=== PATIENT | male | born 1955 | race Caucasian/White ===

== ENCOUNTER 2018-05-14 18:48 | Inpatient (IN) | payer OTHER ==
[~2018-05-14] VITALS: Ht 180.3 cm; Wt 76.0 kg
[2018-05-14] MEDS ORDERED: HYDROmorphone 2 MG/ML, 1ML ONE (19:40)
[2018-05-14 19:43] LABS: BASOPHILS # (AUTO) 0.02 x10^3/uL (0-0.1); BASOPHILS % (AUTO) 0 % (0-1); EOSINOPHILS # (AUTO) 0.04 x10^3/uL (0-0.4); EOSINOPHILS % (AUTO) 1 % (1-7); HCT (SEDRATE) 44.2 % (39.2-51.8); LYMPHOCYTES % (AUTO) 16 % (22-44); MD NO; MEAN CORPUSCULAR HGB CONC 33.8 g/dL (33.2-36.2); MEAN CORPUSCULAR VOLUME 85.9 fL (81-97); MONOCYTES % (AUTO) 10 % (2-9); NEUTROPHILS # (AUTO) 6.31 x10^3/uL (1.8-6.8); NEUTROPHILS % (AUTO) 73 % (42-75); PLATELET COUNT 490 x10^3/uL (130-400); RED BLOOD COUNT 4.92 x10^6/uL (4.38-5.82); RED CELL DISTRIBUTION WIDTH 12.9 % (9.4-14.8)
[2018-05-14 19:51] LABS: ANION GAP 11 mmol/L (5-15); CALCIUM 9.2 mg/dL (8.5-10.1); CHLORIDE 97 mmol/L (98-107)
[2018-05-14 19:59] LABS: CREATININE 1.43 mg/dL (0.7-1.3)
[2018-05-14] MEDS ORDERED: HYDROmorphone 1 MG/ML, 1ML IVPush PRN (20:00)
[2018-05-14] MEDS ORDERED: SODIUM CHLORIDE FLUSH 10ML SYR IVF ONE (20:00)
[2018-05-14 20:01] LABS: HIGH-SENSITIVITY CRP > 19.00 mg/dL (0.02-0.30)
[2018-05-14] MEDS ORDERED: LIDOCAINE-MPF 2% ,5ML ONE ×2 (20:05→20:23)
[2018-05-14] MEDS ORDERED: GLIP10TA13 PO (20:57)
[2018-05-14] MEDS ORDERED: INSU100V8 SQ (20:57)
[2018-05-14] MEDS ORDERED: LIDOCAINE 2%, 20ML SQ ONE (21:00)
[2018-05-14] MEDS ORDERED: GLUCAGON 1 MG IM PRN (22:00)
[2018-05-14] MEDS ORDERED: POLYETHYLENE GLYCOL 17 GM PACKET PO PRN (22:00)
[2018-05-14] MEDS ORDERED: hydrALAzine 20 MG/ML, 1ML IVPush PRN (22:00)
[2018-05-14] MEDS ORDERED: DEXTROSE 4 GM TAB.CHEW PO PRN (22:00)
[2018-05-14] MEDS ORDERED: DEXTROSE 50%, 50ML SYRINGE IVPush PRN (22:00)
[2018-05-14] MEDS ORDERED: BISACODYL 10 MG SUPP PR PRN (22:00)
[2018-05-14] MEDS ORDERED: ONDANSETRON 2MG/ML, 2ML IVPush PRN (22:00)
[2018-05-14] MEDS ORDERED: ACETAMINOPHEN 325 MG TABLET PO PRN (22:00)
[2018-05-14] MEDS: HYDROcodone/APAP 5/325 TABLET PO PRN (22:31)
[2018-05-14] MEDS: SODIUM CHLORIDE 0.9% 1,000 ML IV SCH (22:32)
[2018-05-14] MEDS: morphine SULFATE 10 MG/ML, 1ML IVPush PRN (23:10)
[2018-05-15 02:45] VITALS: BP 146/80
[2018-05-15 05:42] LABS: BASOPHILS # (AUTO) 0.03 x10^3/uL (0-0.1); BASOPHILS % (AUTO) 0 % (0-1); EOSINOPHILS # (AUTO) 0.08 x10^3/uL (0-0.4); EOSINOPHILS % (AUTO) 1 % (1-7); LYMPHOCYTES # (AUTO) 1.21 x10^3/uL (1-3.4); LYMPHOCYTES % (AUTO) 13 % (22-44); MD NO; MEAN CORPUSCULAR HEMOGLOBIN 28.8 pg (27.5-34.5); MEAN CORPUSCULAR HGB CONC 33.6 g/dL (33.2-36.2); MEAN CORPUSCULAR VOLUME 85.7 fL (81-97); MONOCYTES # (AUTO) 1.13 x10^3/uL (0.2-0.8); MONOCYTES % (AUTO) 12 % (2-9); NEUTROPHILS # (AUTO) 6.88 x10^3/uL (1.8-6.8); NEUTROPHILS % (AUTO) 74 % (42-75); PLATELET COUNT 455 x10^3/uL (130-400); RED BLOOD COUNT 4.39 x10^6/uL (4.38-5.82); RED CELL DISTRIBUTION WIDTH 12.7 % (9.4-14.8)
[2018-05-15] MEDS: morphine SULFATE 10 MG/ML, 1ML IVPush PRN ×3 (05:50→16:49)
[2018-05-15 05:59] LABS: CHLORIDE 102 mmol/L (98-107)
[2018-05-15 06:05] LABS: ALANINE AMINOTRANSFERASE 13 U/L (12-78); ALBUMIN 2.5 g/dL (3.4-5.0); ALKALINE PHOSPHATASE 107 U/L (45-117); ANION GAP 7 mmol/L (5-15); BILIRUBIN,TOTAL 0.7 mg/dL (0.2-1.0); CREATININE 1.16 mg/dL (0.7-1.3)
[2018-05-15 07:19] VITALS: BP 137/76
[2018-05-15] MEDS: SODIUM CHLORIDE FLUSH 10ML SYR IVF SCH ×2 (08:09→20:58)
[2018-05-15] MEDS: INSULIN LISPRO 100 UNITS/ML, PEN SQ-INSULIN SCH ×4 (08:43→21:48)
[2018-05-15] MEDS: SODIUM CHLORIDE 0.9% 1,000 ML IV SCH (11:15)
[2018-05-15 14:00] VITALS: BP 160/76
[2018-05-15] MEDS ORDERED: MIDAZOLAM 1 MG/ML, 2ML ONE (15:03)
[2018-05-15] MEDS ORDERED: FENTANYL PF 250 MCG/5ML ONE (15:03)
[2018-05-15] MEDS ORDERED: PROPOFOL 10 MG/ML, 20ML ONE (15:05)
[2018-05-15] MEDS ORDERED: WATER-INJECTION,STERILE 10 ML IV ONE (15:05)
[2018-05-15] MEDS ORDERED: PHENYLEPHRINE 10 MG/ML ONE (15:05)
[2018-05-15] MEDS ORDERED: CEFAZOLIN 1,000 MG ONE ×2 (15:05)
[2018-05-15] MEDS ORDERED: DEXAMETHASONE 4 MG/ML, 1ML ONE (15:21)
[2018-05-15] MEDS ORDERED: ONDANSETRON 2MG/ML, 2ML ONE (15:21)
[2018-05-15] MEDS ORDERED: EPINEPHRINE 1 MG/ML, 1ML ONE (15:52)
[2018-05-15] MEDS ORDERED: BUPIVACAINE 0.25% ONE (15:52)
[2018-05-15] MEDS ORDERED: LABETALOL 5MG/ML, 20ML IV PRN (16:00)
[2018-05-15] MEDS ORDERED: HYDROmorphone 1 MG/ML, 1ML IV PRN (16:00)
[2018-05-15] MEDS ORDERED: HALOPERIDOL 5 MG/ML IV PRN (16:00)
[2018-05-15] MEDS ORDERED: PROMETHAZINE 25 MG/ML, 1ML IV PRN (16:00)
[2018-05-15] MEDS ORDERED: FENTANYL PF 100 MCG/2ML IV PRN (16:00)
[2018-05-15] MEDS ORDERED: MEPERIDINE/PF 25MG/0.5ML IVPush PRN (16:00)
[2018-05-15] MEDS ORDERED: ACETAMINOPHEN 325 MG TABLET PO PRN (16:00)
[2018-05-15] MEDS ORDERED: OXYcodone 5 MG/5 ML ORAL.SOL UDC PO PRN (16:00)
[2018-05-15] MEDS ORDERED: hydrALAzine 20 MG/ML, 1ML IV PRN (16:00)
[2018-05-15] MEDS ORDERED: HYDROmorphone 2 MG/ML, 1ML ONE (16:37)
[2018-05-15] MEDS ORDERED: ACETAMINOPHEN 650 MG/20.3 ML UDC ONE (16:37)
[2018-05-15] MEDS ORDERED: OXYcodone 5 MG/5 ML ORAL.SOL UDC ONE (16:38)
[2018-05-15] MEDS ORDERED: MORPHINE SULFATE 4 MG/ML, 1ML ONE (16:46)
[2018-05-15] MEDS ORDERED: PHARMACOKINETIC MONITORING MC PRN (17:30)
[2018-05-15] MEDS ORDERED: PHARMACOKINETIC CONSULTATION MC ONE (17:30)
[2018-05-15] MEDS ORDERED: VANCOMYCIN PER PHARMACY MC PRN (17:30)
[2018-05-15] MEDS: PIPERACILLIN/TAZO/PMX 3.375GM 50 ML IV SCH ×2 (17:58→23:25)
[2018-05-15] MEDS ORDERED: VANCOMYCIN 1,500 MG in SODIUM CHLORIDE 0.9% 250 ML IV SCH (18:00)
[2018-05-15 19:30] VITALS: BP 136/65
[2018-05-15] MEDS: HYDROcodone/APAP 5/325 TABLET PO PRN (20:36)
[2018-05-15] MEDS ORDERED: INSULIN LISPRO 100 UNITS/ML, PEN SQ-INSULIN SCH (21:45)
[2018-05-15] MEDS: INSULIN GLARGINE 100 UNITS/ML, PEN SQ-INSULIN SCH (23:25)
[2018-05-15] MEDS: CEFAZOLIN PMX 1GM/50ML 50 ML IVPB SCH (23:38)
[2018-05-16 00:01] VITALS: BP 109/66
[2018-05-16] MEDS: PIPERACILLIN/TAZO/PMX 3.375GM 50 ML IV SCH ×2 (00:19→06:19)
[2018-05-16] MEDS ORDERED: INSULIN LISPRO 100 UNITS/ML, PEN SQ-INSULIN ONE (03:30)
[2018-05-16] MEDS: HYDROcodone/APAP 5/325 TABLET PO PRN ×3 (04:01→14:15)
[2018-05-16 04:03] VITALS: BP 133/72
[2018-05-16 07:03] VITALS: BP 122/73
[2018-05-16] MEDS ORDERED: CEFAZOLIN PMX 1GM/50ML 50 ML ONE (08:17)
[2018-05-16] MEDS: INSULIN LISPRO 100 UNITS/ML, PEN SQ-INSULIN SCH ×4 (08:22→21:21)
[2018-05-16] MEDS: SODIUM CHLORIDE FLUSH 10ML SYR IVF SCH ×2 (08:23→21:00)
[2018-05-16] MEDS: CEFAZOLIN PMX 1GM/50ML 50 ML IVPB SCH (08:23)
[2018-05-16 13:57] VITALS: BP 150/70
[2018-05-16] MEDS: DAPTOMYCIN 500 MG in SODIUM CHLORIDE 0.9% 100 ML IVPB SCH (14:15)
[2018-05-16] MEDS: morphine SULFATE 10 MG/ML, 1ML IVPush PRN ×2 (16:27→21:29)
[2018-05-16 19:49] VITALS: BP 122/71
[2018-05-16] MEDS: INSULIN GLARGINE 100 UNITS/ML, PEN SQ-INSULIN SCH (21:21)
[2018-05-17] VITALS: BP 129/77
[2018-05-17] MEDS: morphine SULFATE 10 MG/ML, 1ML IVPush PRN ×2 (00:51→06:52)
[2018-05-17 05:23] LABS: ALBUMIN 1.9 g/dL (3.4-5.0); ANION GAP 7 mmol/L (5-15); CALCIUM 8.2 mg/dL (8.5-10.1); CHLORIDE 99 mmol/L (98-107)
[2018-05-17 05:34] LABS: ALANINE AMINOTRANSFERASE 10 U/L (12-78); ALKALINE PHOSPHATASE 78 U/L (45-117); BILIRUBIN,TOTAL 0.6 mg/dL (0.2-1.0); CREATINE KINASE, TOTAL 50 U/L (39-308); CREATININE 1.11 mg/dL (0.7-1.3); TOTAL PROTEIN 6.2 g/dL (6.4-8.2)
[2018-05-17 06:11] LABS: HEMOGLOBIN A1C 11.8 % (4.2-6.3)
[2018-05-17] MEDS: INSULIN LISPRO 100 UNITS/ML, PEN SQ-INSULIN SCH ×4 (07:00→22:14)
[2018-05-17 07:11] VITALS: BP 144/79
[2018-05-17] MEDS ORDERED: FENTANYL PF 250 MCG/5ML ONE (07:54)
[2018-05-17] MEDS ORDERED: PROPOFOL 10 MG/ML, 20ML ONE (07:59)
[2018-05-17] MEDS ORDERED: MIDAZOLAM 1 MG/ML, 2ML ONE (08:10)
[2018-05-17] MEDS ORDERED: VANCOMYCIN 1,000 MG ONE (08:56)
[2018-05-17] MEDS ORDERED: PROMETHAZINE 25 MG/ML, 1ML IV PRN (09:00)
[2018-05-17] MEDS ORDERED: LABETALOL 5MG/ML, 20ML IV PRN (09:00)
[2018-05-17] MEDS ORDERED: PROMETHAZINE 12.5 MG SUPP PR PRN (09:00)
[2018-05-17] MEDS ORDERED: DIPHENHYDRAMINE 25 MG CAPSULE PO PRN (09:00)
[2018-05-17] MEDS ORDERED: ACETAMINOPHEN 325 MG TABLET PO PRN (09:00)
[2018-05-17] MEDS ORDERED: EPHEDRINE 50 MG/ML, 1ML IM PRN (09:00)
[2018-05-17] MEDS ORDERED: EPHEDRINE 50 MG/ML, 1ML IVPush PRN (09:00)
[2018-05-17] MEDS ORDERED: OXYcodone 5 MG/5 ML ORAL.SOL UDC PO PRN (09:00)
[2018-05-17] MEDS ORDERED: MIDAZOLAM 1 MG/ML, 2ML IV PRN (09:00)
[2018-05-17] MEDS ORDERED: MORPHINE SULFATE 4 MG/ML, 1ML IVPush PRN (09:00)
[2018-05-17] MEDS ORDERED: ONDANSETRON ODT 8 MG PO PRN (09:00)
[2018-05-17] MEDS ORDERED: OXYcodone 5 MG/5 ML ORAL.SOL UDC ONE (09:48)
[2018-05-17] MEDS ORDERED: FENTANYL PF 100 MCG/2ML ONE ×2 (09:48→10:09)
[2018-05-17] MEDS: FENTANYL PF 100 MCG/2ML IV PRN ×5 (09:50→10:30)
[2018-05-17] MEDS: SODIUM CHLORIDE FLUSH 10ML SYR IVF SCH ×2 (11:42→22:14)
[2018-05-17 11:45] VITALS: BP 128/70
[2018-05-17] MEDS: DAPTOMYCIN 500 MG in SODIUM CHLORIDE 0.9% 100 ML IVPB SCH (13:48)
[2018-05-17] MEDS: HYDROcodone/APAP 5/325 TABLET PO PRN (14:44)
[2018-05-17 14:47] VITALS: BP 154/85
[2018-05-17] MEDS: DOCUSATE 100 MG CAPSULE PO PRN (17:34)
[2018-05-17 20:18] VITALS: BP 130/75
[2018-05-17] MEDS: INSULIN GLARGINE 100 UNITS/ML, PEN SQ-INSULIN SCH (22:13)
[2018-05-17 23:46] VITALS: BP 128/71
[2018-05-18] MEDS: HYDROcodone/APAP 5/325 TABLET PO PRN ×4 (02:32→19:29)
[2018-05-18 03:36] VITALS: BP 126/76
[2018-05-18 07:37] VITALS: BP_SYST 153; BP_SYST 160; BP_DIAS 89
[2018-05-18] MEDS: SODIUM CHLORIDE FLUSH 10ML SYR IVF SCH ×2 (07:55→20:55)
[2018-05-18] MEDS: INSULIN LISPRO 100 UNITS/ML, PEN SQ-INSULIN SCH ×4 (07:55→20:55)
[2018-05-18] MEDS: DAPTOMYCIN 500 MG in SODIUM CHLORIDE 0.9% 100 ML IVPB SCH (12:08)
[2018-05-18 13:16] VITALS: BP 127/73
[2018-05-18] MEDS: DOCUSATE 100 MG CAPSULE PO PRN (16:46)
[2018-05-18 18:49] VITALS: BP 156/93
[2018-05-18] MEDS: INSULIN GLARGINE 100 UNITS/ML, PEN SQ-INSULIN SCH (20:55)
[2018-05-19] MEDS: HYDROcodone/APAP 5/325 TABLET PO PRN ×6 (00:13→23:45)
[2018-05-19 00:38] VITALS: BP 127/75
[2018-05-19] MEDS: INSULIN LISPRO 100 UNITS/ML, PEN SQ-INSULIN SCH ×4 (07:44→20:58)
[2018-05-19 08:00] VITALS: BP 99/60
[2018-05-19] MEDS: SODIUM CHLORIDE FLUSH 10ML SYR IVF SCH ×2 (08:24→20:50)
[2018-05-19 08:30] VITALS: BP 125/74
[2018-05-19] MEDS: DOCUSATE 50 MG/5 ML, 10ML UDC PO SCH ×2 (11:10→20:50)
[2018-05-19] MEDS: MAGNESIUM HYDROXIDE 8%, 30ML UDC PO SCH (11:10)
[2018-05-19] MEDS: DAPTOMYCIN 500 MG in SODIUM CHLORIDE 0.9% 100 ML IVPB SCH (12:43)
[2018-05-19 14:36] VITALS: BP 144/84
[2018-05-19] MEDS ORDERED: INSULIN GLARGINE 100 UNITS/ML, PEN SQ-INSULIN SCH (21:00)
[2018-05-19 21:24] VITALS: BP 131/78
[2018-05-20 00:29] VITALS: BP 113/68
[2018-05-20] MEDS: HYDROcodone/APAP 5/325 TABLET PO PRN ×5 (03:47→21:38)
[2018-05-20 07:50] LABS: ALANINE AMINOTRANSFERASE 11 U/L (12-78); ALBUMIN 2.2 g/dL (3.4-5.0); ANION GAP 6 mmol/L (5-15); CALCIUM 8.7 mg/dL (8.5-10.1); CHLORIDE 96 mmol/L (98-107); CREATININE 1.16 mg/dL (0.7-1.3)
[2018-05-20 07:52] LABS: ALKALINE PHOSPHATASE 89 U/L (45-117); BILIRUBIN,TOTAL 0.6 mg/dL (0.2-1.0); TOTAL PROTEIN 7.2 g/dL (6.4-8.2)
[2018-05-20 07:55] LABS: BASOPHILS # (AUTO) 0.03 x10^3/uL (0-0.1); BASOPHILS % (AUTO) 0 % (0-1); EOSINOPHILS # (AUTO) 0.16 x10^3/uL (0-0.4); EOSINOPHILS % (AUTO) 2 % (1-7); LYMPHOCYTES # (AUTO) 1.15 x10^3/uL (1-3.4); LYMPHOCYTES % (AUTO) 12 % (22-44); MD NO; MEAN CORPUSCULAR HGB CONC 33.3 g/dL (33.2-36.2); MEAN CORPUSCULAR VOLUME 84.1 fL (81-97); MEAN PLATELET VOLUME 6.4 fL (7.4-10.4); MONOCYTES # (AUTO) 1.02 x10^3/uL (0.2-0.8); MONOCYTES % (AUTO) 11 % (2-9); NEUTROPHILS # (AUTO) 7.23 x10^3/uL (1.8-6.8); NEUTROPHILS % (AUTO) 75 % (42-75); PLATELET COUNT 630 x10^3/uL (130-400); RED BLOOD COUNT 4.22 x10^6/uL (4.38-5.82); RED CELL DISTRIBUTION WIDTH 12.7 % (9.4-14.8)
[2018-05-20] MEDS: MAGNESIUM HYDROXIDE 8%, 30ML UDC PO SCH (08:58)
[2018-05-20] MEDS: INSULIN LISPRO 100 UNITS/ML, PEN SQ-INSULIN SCH ×4 (08:58→21:54)
[2018-05-20] MEDS: DOCUSATE 50 MG/5 ML, 10ML UDC PO SCH ×2 (08:58→21:38)
[2018-05-20] MEDS: SODIUM CHLORIDE FLUSH 10ML SYR IVF SCH ×2 (08:59→21:00)
[2018-05-20] MEDS ORDERED: INSULIN GLARGINE 100 UNITS/ML, PEN SQ-INSULIN SCH ×2 (09:00→21:00)
[2018-05-20] MEDS ORDERED: MAGNESIUM CITRATE 300ML ORAL SOL PO ONE (13:00)
[2018-05-20] MEDS: DAPTOMYCIN 500 MG in SODIUM CHLORIDE 0.9% 100 ML IVPB SCH (15:10)
[2018-05-20 15:23] VITALS: BP 138/87
[2018-05-20 16:06] LABS: OSMOLALITY,URINE 493 mOsm/kg (500-850)
[2018-05-20] MEDS ORDERED: INSULIN LISPRO 100 UNITS/ML, PEN SQ-INSULIN SCH (17:00)
[2018-05-20] MEDS: FLORASTOR 250 MG CAPSULE PO SCH (17:34)
[2018-05-20 20:16] VITALS: BP 142/89
[2018-05-21 01:53] VITALS: BP 131/82
[2018-05-21] MEDS: HYDROcodone/APAP 5/325 TABLET PO PRN ×3 (02:06→11:15)
[2018-05-21 04:41] LABS: HCT (SEDRATE) 34.7 % (39.2-51.8)
[2018-05-21 04:44] LABS: BASOPHILS # (AUTO) 0.03 x10^3/uL (0-0.1); BASOPHILS % (AUTO) 0 % (0-1); EOSINOPHILS # (AUTO) 0.14 x10^3/uL (0-0.4); EOSINOPHILS % (AUTO) 2 % (1-7); LYMPHOCYTES # (AUTO) 1.16 x10^3/uL (1-3.4); LYMPHOCYTES % (AUTO) 13 % (22-44); MD NO; MEAN CORPUSCULAR HEMOGLOBIN 28.4 pg (27.5-34.5); MEAN CORPUSCULAR HGB CONC 33.8 g/dL (33.2-36.2); MEAN CORPUSCULAR VOLUME 84.1 fL (81-97); MEAN PLATELET VOLUME 6.5 fL (7.4-10.4); MONOCYTES % (AUTO) 12 % (2-9); NEUTROPHILS % (AUTO) 73 % (42-75); PLATELET COUNT 644 x10^3/uL (130-400); RED BLOOD COUNT 4.05 x10^6/uL (4.38-5.82); RED CELL DISTRIBUTION WIDTH 12.7 % (9.4-14.8)
[2018-05-21 04:53] LABS: ALBUMIN 2.1 g/dL (3.4-5.0); ANION GAP 6 mmol/L (5-15); CALCIUM 8.9 mg/dL (8.5-10.1); CHLORIDE 96 mmol/L (98-107)
[2018-05-21 05:03] LABS: ALANINE AMINOTRANSFERASE 11 U/L (12-78); ALKALINE PHOSPHATASE 88 U/L (45-117); BILIRUBIN,TOTAL 0.5 mg/dL (0.2-1.0); CREATINE KINASE, TOTAL 36 U/L (39-308); TOTAL PROTEIN 6.9 g/dL (6.4-8.2)
[2018-05-21 07:07] VITALS: BP 113/75
[2018-05-21] MEDS: FLORASTOR 250 MG CAPSULE PO SCH (08:21)
[2018-05-21] MEDS: DOCUSATE 50 MG/5 ML, 10ML UDC PO SCH ×2 (08:21→21:21)
[2018-05-21] MEDS: INSULIN LISPRO 100 UNITS/ML, PEN SQ-INSULIN SCH ×4 (08:22→21:18)
[2018-05-21] MEDS: SODIUM CHLORIDE FLUSH 10ML SYR IVF SCH ×2 (08:24→20:55)
[2018-05-21] MEDS: MAGNESIUM HYDROXIDE 8%, 30ML UDC PO SCH (09:00)
[2018-05-21] MEDS ORDERED: INSULIN GLARGINE 100 UNITS/ML, PEN SQ-INSULIN SCH ×2 (09:00→21:00)
[2018-05-21] MEDS: MESALAMINE ENEMA 4 GM/60 ML ENEMA PR SCH (11:35)
[2018-05-21 13:10] VITALS: BP 137/85
[2018-05-21] MEDS: DAPTOMYCIN 500 MG in SODIUM CHLORIDE 0.9% 100 ML IVPB SCH (14:48)
[2018-05-21] MEDS ORDERED: LIDOCAINE-MPF 1%, 2ML ONE (15:56)
[2018-05-21 19:29] VITALS: BP 133/78
[2018-05-22 02:07] VITALS: BP 133/80
[2018-05-22] MEDS: HYDROcodone/APAP 5/325 TABLET PO PRN ×5 (02:26→19:50)
[2018-05-22 05:37] LABS: ANION GAP 9 mmol/L (5-15); CALCIUM 9.5 mg/dL (8.5-10.1); CHLORIDE 101 mmol/L (98-107); CREATININE 1.08 mg/dL (0.7-1.3)
[2018-05-22] MEDS: INSULIN LISPRO 100 UNITS/ML, PEN SQ-INSULIN SCH ×4 (06:26→21:40)
[2018-05-22 07:10] VITALS: BP 119/77
[2018-05-22] MEDS: INSULIN GLARGINE 100 UNITS/ML, PEN SQ-INSULIN SCH ×3 (07:21→23:08)
[2018-05-22] MEDS: MAGNESIUM HYDROXIDE 8%, 30ML UDC PO SCH (08:44)
[2018-05-22] MEDS: FLORASTOR 250 MG CAPSULE PO SCH (08:52)
[2018-05-22] MEDS: SODIUM CHLORIDE FLUSH 10ML SYR IVF SCH ×2 (08:52→23:05)
[2018-05-22] MEDS: DOCUSATE 100 MG CAPSULE PO SCH ×2 (08:52→19:50)
[2018-05-22] MEDS: ENOXAPARIN 40 MG/0.4 ML SQ SCH (08:53)
[2018-05-22 13:36] VITALS: BP 133/80
[2018-05-22] MEDS: DAPTOMYCIN 500 MG in SODIUM CHLORIDE 0.9% 100 ML IVPB SCH (14:44)
[2018-05-22 19:00] VITALS: BP 128/80
[2018-05-22] MEDS: MESALAMINE ENEMA 4 GM/60 ML ENEMA PR SCH (21:42)
[2018-05-23] MEDS: HYDROcodone/APAP 5/325 TABLET PO PRN ×6 (00:18→22:24)
[2018-05-23 02:46] VITALS: BP 107/63
[2018-05-23 07:07] VITALS: BP 158/95
[2018-05-23] MEDS: SODIUM CHLORIDE FLUSH 10ML SYR IVF SCH ×2 (08:15→21:08)
[2018-05-23] MEDS: DOCUSATE 100 MG CAPSULE PO SCH ×2 (08:15→21:09)
[2018-05-23] MEDS: FLORASTOR 250 MG CAPSULE PO SCH (08:15)
[2018-05-23] MEDS: INSULIN LISPRO 100 UNITS/ML, PEN SQ-INSULIN SCH ×4 (08:16→21:08)
[2018-05-23] MEDS: MAGNESIUM HYDROXIDE 8%, 30ML UDC PO SCH (08:16)
[2018-05-23] MEDS: ENOXAPARIN 40 MG/0.4 ML SQ SCH (08:16)
[2018-05-23] MEDS: INSULIN GLARGINE 100 UNITS/ML, PEN SQ-INSULIN SCH ×2 (08:17→21:08)
[2018-05-23 13:53] VITALS: BP 114/72
[2018-05-23] MEDS: DAPTOMYCIN 500 MG in SODIUM CHLORIDE 0.9% 100 ML IVPB SCH (14:53)
[2018-05-23 19:41] VITALS: BP 126/72
[2018-05-23] MEDS: MESALAMINE ENEMA 4 GM/60 ML ENEMA PR SCH (21:08)
[2018-05-24] MEDS: HYDROcodone/APAP 5/325 TABLET PO PRN ×5 (03:30→20:15)
[2018-05-24 04:26] VITALS: BP 125/76
[2018-05-24 07:20] VITALS: BP 127/75
[2018-05-24] MEDS: INSULIN LISPRO 100 UNITS/ML, PEN SQ-INSULIN SCH ×4 (07:32→20:25)
[2018-05-24] MEDS: MAGNESIUM HYDROXIDE 8%, 30ML UDC PO SCH (08:02)
[2018-05-24] MEDS: FLORASTOR 250 MG CAPSULE PO SCH (08:02)
[2018-05-24] MEDS: DOCUSATE 100 MG CAPSULE PO SCH ×2 (08:02→20:15)
[2018-05-24] MEDS: ENOXAPARIN 40 MG/0.4 ML SQ SCH (08:03)
[2018-05-24] MEDS: SODIUM CHLORIDE FLUSH 10ML SYR IVF SCH ×2 (08:03→20:15)
[2018-05-24] MEDS: INSULIN GLARGINE 100 UNITS/ML, PEN SQ-INSULIN SCH (08:03)
[2018-05-24 12:55] VITALS: BP 133/80
[2018-05-24] MEDS: DAPTOMYCIN 500 MG in SODIUM CHLORIDE 0.9% 100 ML IVPB SCH (14:46)
[2018-05-24 19:32] VITALS: BP 120/73
[2018-05-24] MEDS: MESALAMINE ENEMA 4 GM/60 ML ENEMA PR SCH (20:15)
[2018-05-24] MEDS ORDERED: INSULIN GLARGINE 100 UNITS/ML, PEN SQ-INSULIN SCH (21:00)
[2018-05-25] MEDS: HYDROcodone/APAP 5/325 TABLET PO PRN ×3 (00:20→09:15)
[2018-05-25 00:24] VITALS: BP 100/61
[2018-05-25] MEDS: INSULIN LISPRO 100 UNITS/ML, PEN SQ-INSULIN SCH ×2 (06:25→11:51)
[2018-05-25 07:00] VITALS: BP 119/61
[2018-05-25 07:05] VITALS: BP 119/61
[2018-05-25] MEDS: ENOXAPARIN 40 MG/0.4 ML SQ SCH (09:00)
[2018-05-25] MEDS: SODIUM CHLORIDE FLUSH 10ML SYR IVF SCH (09:00)
[2018-05-25] MEDS ORDERED: INSULIN GLARGINE 100 UNITS/ML, PEN SQ-INSULIN SCH (09:00)
[2018-05-25] MEDS: DOCUSATE 100 MG CAPSULE PO SCH (09:15)
[2018-05-25] MEDS: FLORASTOR 250 MG CAPSULE PO SCH (09:15)
[2018-05-25] MEDS: MAGNESIUM HYDROXIDE 8%, 30ML UDC PO SCH (09:15)
[2018-05-25] MEDS ORDERED: INSU100I11 SQ-INSULIN (12:28)
[2018-05-25] MEDS ORDERED: INSU100I13 SQ-INSULIN ×2 (12:28)
[2018-05-25] MEDS ORDERED: DOCU240C15 PO (12:28)
[2018-05-25] MEDS ORDERED: DAPT500V6 IV (12:28)
[2018-05-25 14:21] VITALS: BP 127/76
[2018-05-25] MEDS: DAPTOMYCIN 500 MG in SODIUM CHLORIDE 0.9% 100 ML IVPB SCH (14:35)
[2018-05-26] MEDS ORDERED: INSULIN GLARGINE 100 UNITS/ML, PEN SQ-INSULIN SCH (09:00)
== END 2018-05-25 16:03 | disposition home or self-care (01) | DRG 853 ==
LOC: ED 20:52 → 4NOR 20:53 → ED 21:00 → 4NOR 21:45 → ED 21:45 → 4NOR 21:48
PROVIDERS: ADMIT Hospitalist; ATTEND Hospitalist
PROC: 0S9G3ZZ Drainage of Left Ankle Joint, Percutaneous Approach (ICD-10-PCS; 2018-05-14)
PROC: 0SBG0ZX Excision of Left Ankle Joint, Open Approach, Diagnostic (ICD-10-PCS; 2018-05-15)
PROC: 0QBH0ZZ Excision of Left Tibia, Open Approach (ICD-10-PCS; 2018-05-17)
PROC: 3E0V329 Introduction of Other Anti-infective into Bones, Percutaneous Approach (ICD-10-PCS; 2018-05-17)
PROC: 02HV33Z Insertion of Infusion Device into Superior Vena Cava, Percutaneous Approach (ICD-10-PCS; principal; 2018-05-21)
PROC: B5181ZA Fluoroscopy of Superior Vena Cava using Low Osmolar Contrast, Guidance (ICD-10-PCS; 2018-05-21)
PROC: B548ZZA Ultrasonography of Superior Vena Cava, Guidance (ICD-10-PCS; 2018-05-21)
DX: A41.9 Sepsis, unspecified organism (principal); N17.0 Acute kidney failure with tubular necrosis; M86.172 Other acute osteomyelitis, left ankle and foot; E44.0 Moderate protein-calorie malnutrition; E87.1 Hypo-osmolality and hyponatremia; M00.9 Pyogenic arthritis, unspecified; E11.69 Type 2 diabetes mellitus with other specified complication; B95.62 Methicillin resistant Staphylococcus aureus infection as the cause of diseases classified elsewhere; E11.65 Type 2 diabetes mellitus with hyperglycemia; D47.3 Essential (hemorrhagic) thrombocythemia; K59.00 Constipation, unspecified; L02.92 Furuncle, unspecified; M10.9 Gout, unspecified; W55.12XA Struck by horse, initial encounter; Z79.4 Long term (current) use of insulin; Z82.0 Family history of epilepsy and other diseases of the nervous system; Z83.3 Family history of diabetes mellitus; Z86.14 Personal history of Methicillin resistant Staphylococcus aureus infection; Z89.011 Acquired absence of right thumb; Z79.84 Long term (current) use of oral hypoglycemic drugs; Z79.899 Other long term (current) drug therapy
CPT/HCPCS: 20605; 36415; 36569; 74018; 76937; 77001; 80048; 80053; 82550; 82947; 82962; 83036; 83930; 83935; 84443; 85025; 85651; 86140; 86141; 87015; 87040; 87070; 87075; 87077; 87102; 87116; 87147; 87186; 87205; 87206; 89060; 96372; 96374; J0171; J0690; J0878; J1100; J1170; J1650; J2250; J2405; J2543; J2704; J3010; J3370; J3490; C1751; J1815; J2270; J2370; J7030; J7050

== ENCOUNTER → 2018-05-14 | Outpatient (CLI) | payer SELFPAY ==
[~2018-05-14] MED LIST: GLIP10TA13 PO; INSU100V8 SQ
== END | disposition home or self-care (01) ==
LOC: RAD 11:46
PROVIDERS: ATTEND Physician Assistant
DX: M65.872 Other synovitis and tenosynovitis, left ankle and foot (principal); S93.492A Sprain of other ligament of left ankle, initial encounter; X58.XXXA Exposure to other specified factors, initial encounter; Y93.89 Activity, other specified; Y92.89 Other specified places as the place of occurrence of the external cause; Y99.8 Other external cause status

== ENCOUNTER 2018-05-31 08:41 | Day surgery (SDC) | payer OTHER ==
[~2018-05-31] VITALS: Ht 180.3 cm; Wt 76.3 kg
[~2018-05-31 08:41] MED LIST changes: +DAPT500V6 IV; +DOCU240C15 PO; +INSU100I11 SQ-INSULIN; +INSU100I13 SQ-INSULIN
[2018-05-31 09:19] VITALS: BP 148/90
[2018-05-31] MEDS ORDERED: LACTATED RINGERS 1,000 ML IV SCH (09:25)
[2018-05-31 09:29] VITALS: BP 148/90
[2018-05-31] MEDS ORDERED: FENTANYL PF 100 MCG/2ML ONE ×3 (11:02→12:26)
[2018-05-31] MEDS ORDERED: KETOROLAC 30 MG/1 ML ONE ×2 (11:07→12:25)
[2018-05-31] MEDS ORDERED: PROPOFOL 10 MG/ML, 20ML ONE (11:07)
[2018-05-31] MEDS ORDERED: ONDANSETRON 2MG/ML, 2ML ONE (11:07)
[2018-05-31] MEDS ORDERED: DEXAMETHASONE 4 MG/ML, 5ML ONE (11:07)
[2018-05-31] MEDS ORDERED: VANCOMYCIN 1,000 MG ONE (11:25)
[2018-05-31] MEDS ORDERED: FENTANYL PF 100 MCG/2ML IV PRN (11:30)
[2018-05-31] MEDS ORDERED: ACETAMINOPHEN 325 MG TABLET PO PRN ×2 (11:30→12:30)
[2018-05-31] MEDS ORDERED: OXYcodone 5 MG/5 ML ORAL.SOL UDC PO PRN ×2 (11:30→12:30)
[2018-05-31] MEDS ORDERED: LABETALOL 5MG/ML, 20ML IV PRN (11:30)
[2018-05-31] MEDS ORDERED: HYDROmorphone 1 MG/ML, 1ML IV PRN (11:30)
[2018-05-31] MEDS ORDERED: HALOPERIDOL 5 MG/ML IV PRN (11:30)
[2018-05-31] MEDS ORDERED: hydrALAzine 20 MG/ML, 1ML IV PRN (11:30)
[2018-05-31] MEDS ORDERED: BUPIVACAINE/PF 0.5% ONE (12:15)
[2018-05-31] MEDS ORDERED: OXYcodone 5 MG/5 ML ORAL.SOL UDC ONE (12:26)
[2018-05-31] MEDS ORDERED: morphine SULFATE 10 MG/ML, 1ML IVPush PRN (12:30)
[2018-05-31] MEDS ORDERED: PROMETHAZINE 25 MG/ML, 1ML IM PRN (12:30)
[2018-05-31] MEDS ORDERED: ONDANSETRON 2MG/ML, 2ML IVPush PRN (12:30)
[2018-05-31] MEDS ORDERED: KETOROLAC 30 MG/1 ML IVPush SCH (12:30)
== END 2018-05-31 14:30 | disposition home or self-care (01) ==
LOC: OR 08:41
PROVIDERS: ATTEND Orthopaedic Surgery
DX: T81.31XA Disruption of external operation (surgical) wound, not elsewhere classified, initial encounter (principal); M00.872 Arthritis due to other bacteria, left ankle and foot; M86.8X7 Other osteomyelitis, ankle and foot; Y83.8 Other surgical procedures as the cause of abnormal reaction of the patient, or of later complication, without mention of misadventure at the time of the procedure; Y92.89 Other specified places as the place of occurrence of the external cause
CPT/HCPCS: 11044; 82962; 87070; 87075; 87077; 87186; 87205; C1713; J1100; J1885; J2405; J2704; J3010; J3370; J3490; J7120

== ENCOUNTER → 2018-07-10 | Outpatient (CLI) | payer MEDICAID ==
[~2018-07-10] MED LIST changes: +GADOBUTROL 7.5 MMOL/7.5 ML PFS ONE
== END | disposition home or self-care (01) ==
LOC: CFH 12:12
PROVIDERS: ATTEND Internal Medicine Infectious Disease
DX: M86.172 Other acute osteomyelitis, left ankle and foot (principal); M65.872 Other synovitis and tenosynovitis, left ankle and foot; M25.472 Effusion, left ankle
CPT/HCPCS: 70250; 73723; A9585

== ENCOUNTER 2018-07-15 07:43 | Inpatient (IN) | payer MEDICAID ==
[~2018-07-15] VITALS: Ht 180.3 cm; Wt 80.2 kg
[~2018-07-15 07:43] MED LIST changes: -GADOBUTROL 7.5 MMOL/7.5 ML PFS ONE
[2018-07-15] MEDS ORDERED: INSU100V8 SQ (08:32)
[2018-07-15 09:02] LABS: BASOPHILS # (AUTO) 0.02 x10^3/uL (0-0.1); BASOPHILS % (AUTO) 0 % (0-1); EOSINOPHILS % (AUTO) 3 % (1-7); LYMPHOCYTES # (AUTO) 1.22 x10^3/uL (1-3.4); LYMPHOCYTES % (AUTO) 19 % (22-44); MD NO; MEAN CORPUSCULAR VOLUME 82.4 fL (81-97); MEAN PLATELET VOLUME 6.8 fL (7.4-10.4); MONOCYTES # (AUTO) 0.74 x10^3/uL (0.2-0.8); MONOCYTES % (AUTO) 11 % (2-9); NEUTROPHILS # (AUTO) 4.39 x10^3/uL (1.8-6.8); NEUTROPHILS % (AUTO) 67 % (42-75); PLATELET COUNT 449 x10^3/uL (130-400); RED BLOOD COUNT 4.78 x10^6/uL (4.38-5.82); RED CELL DISTRIBUTION WIDTH 15.3 % (9.4-14.8)
[2018-07-15 09:14] LABS: ALANINE AMINOTRANSFERASE 15 U/L (12-78); ALBUMIN 3.3 g/dL (3.4-5.0); ANION GAP 6 mmol/L (5-15); CALCIUM 8.9 mg/dL (8.5-10.1); CHLORIDE 107 mmol/L (98-107); CREATININE 1.07 mg/dL (0.7-1.3)
[2018-07-15 09:16] LABS: ALKALINE PHOSPHATASE 99 U/L (45-117); BILIRUBIN,TOTAL 0.4 mg/dL (0.2-1.0); TOTAL PROTEIN 8.2 g/dL (6.4-8.2)
[2018-07-15 10:12] LABS: INTERNATIONAL NORMALIZED RATIO 0.97 (0.93-1.1)
[2018-07-15] MEDS ORDERED: POLYETHYLENE GLYCOL 17 GM PACKET PO PRN (10:30)
[2018-07-15] MEDS ORDERED: DOCUSATE 100 MG CAPSULE PO PRN (10:30)
[2018-07-15] MEDS ORDERED: ONDANSETRON 2MG/ML, 2ML IVPush PRN (10:30)
[2018-07-15] MEDS ORDERED: HYDROcodone/APAP 5/325 TABLET PO PRN (10:30)
[2018-07-15] MEDS: INSULIN GLARGINE 100 UNITS/ML, PEN SQ-INSULIN SCH ×2 (10:30→21:26)
[2018-07-15] MEDS ORDERED: morphine SULFATE 10 MG/ML, 1ML IVPush PRN (10:30)
[2018-07-15] MEDS ORDERED: DAPTOMYCIN IVPB SCH (11:00)
[2018-07-15] MEDS ORDERED: SODIUM CHLORIDE 0.9% IVPB SCH (11:00)
[2018-07-15] MEDS: INSULIN LISPRO 100 UNITS/ML, PEN SQ-INSULIN SCH ×3 (11:00→20:51)
[2018-07-15 11:15] VITALS: BP 134/78
[2018-07-15] MEDS ORDERED: MIDAZOLAM 1 MG/ML, 2ML ONE (13:33)
[2018-07-15] MEDS ORDERED: FENTANYL PF 250 MCG/5ML ONE (13:34)
[2018-07-15] MEDS ORDERED: PROPOFOL 10 MG/ML, 20ML ONE (13:34)
[2018-07-15] MEDS ORDERED: CEFAZOLIN 1,000 MG ONE ×2 (13:35)
[2018-07-15] MEDS ORDERED: WATER-INJECTION,STERILE 10 ML IV ONE (13:35)
[2018-07-15] MEDS ORDERED: VANCOMYCIN 1,000 MG ONE (13:51)
[2018-07-15] MEDS ORDERED: MEPERIDINE/PF 25MG/0.5ML IVPush PRN (14:00)
[2018-07-15] MEDS ORDERED: hydrALAzine 20 MG/ML, 1ML IV PRN (14:00)
[2018-07-15] MEDS ORDERED: LABETALOL 5MG/ML, 20ML IV PRN (14:00)
[2018-07-15] MEDS ORDERED: OXYcodone 5 MG/5 ML ORAL.SOL UDC PO PRN (14:00)
[2018-07-15] MEDS ORDERED: ONDANSETRON ODT 8 MG PO PRN (14:00)
[2018-07-15] MEDS ORDERED: MORPHINE SULFATE 4 MG/ML, 1ML IVPush PRN (14:00)
[2018-07-15] MEDS ORDERED: PROMETHAZINE 25 MG/ML, 1ML IV PRN (14:00)
[2018-07-15] MEDS ORDERED: ACETAMINOPHEN 325 MG TABLET PO PRN (14:00)
[2018-07-15] MEDS ORDERED: PROMETHAZINE 12.5 MG SUPP PR PRN (14:00)
[2018-07-15] MEDS ORDERED: ONDANSETRON 2MG/ML, 2ML IV PRN (14:00)
[2018-07-15] MEDS ORDERED: HYDROmorphone 1 MG/ML, 1ML IV PRN (14:00)
[2018-07-15] MEDS ORDERED: PROMETHAZINE 25 MG SUPP PR PRN (14:00)
[2018-07-15] MEDS ORDERED: ACETAMINOPHEN 650 MG/20.3 ML UDC ONE (15:18)
[2018-07-15] MEDS ORDERED: OXYcodone 5 MG/5 ML ORAL.SOL UDC ONE (15:18)
[2018-07-15] MEDS ORDERED: FENTANYL PF 100 MCG/2ML ONE (15:21)
[2018-07-15] MEDS: FENTANYL PF 100 MCG/2ML IV PRN ×3 (15:22→15:40)
[2018-07-15 19:30] VITALS: BP 148/84
[2018-07-15] MEDS: SODIUM CHLORIDE FLUSH 10ML SYR IVF SCH (21:25)
[2018-07-15] MEDS: IBUPROFEN 600 MG TABLET PO PRN (23:28)
[2018-07-15] MEDS: ACETAMINOPHEN 325 MG TABLET PO PRN (23:28)
[2018-07-15 23:52] VITALS: BP 129/79
[2018-07-16 03:53] VITALS: BP 108/74
[2018-07-16] MEDS: ACETAMINOPHEN 325 MG TABLET PO PRN ×3 (06:37→20:37)
[2018-07-16] MEDS: IBUPROFEN 600 MG TABLET PO PRN ×3 (06:38→20:37)
[2018-07-16] MEDS: INSULIN LISPRO 100 UNITS/ML, PEN SQ-INSULIN SCH ×4 (07:00→20:37)
[2018-07-16 08:00] VITALS: BP 123/72
[2018-07-16] MEDS: SENNA/DOCUSATE TABLET PO SCH (08:18)
[2018-07-16] MEDS: SODIUM CHLORIDE FLUSH 10ML SYR IVF SCH ×2 (08:18→20:46)
[2018-07-16 12:47] VITALS: BP 145/78
[2018-07-16] MEDS: DAPTOMYCIN 500 MG in SODIUM CHLORIDE 0.9% 100 ML IVPB SCH (12:56)
[2018-07-16] MEDS: ENOXAPARIN 40 MG/0.4 ML SQ SCH (12:57)
[2018-07-16 20:36] VITALS: BP 132/81
[2018-07-16] MEDS: INSULIN GLARGINE 100 UNITS/ML, PEN SQ-INSULIN SCH (20:47)
[2018-07-17 01:45] VITALS: BP 125/81
[2018-07-17] MEDS: ACETAMINOPHEN 325 MG TABLET PO PRN ×3 (02:35→21:15)
[2018-07-17] MEDS: IBUPROFEN 600 MG TABLET PO PRN ×3 (02:36→21:15)
[2018-07-17] MEDS: INSULIN LISPRO 100 UNITS/ML, PEN SQ-INSULIN SCH ×4 (07:00→21:16)
[2018-07-17] MEDS: SODIUM CHLORIDE FLUSH 10ML SYR IVF SCH ×2 (09:00→21:15)
[2018-07-17] MEDS: SENNA/DOCUSATE TABLET PO SCH (09:00)
[2018-07-17] MEDS: INSULIN GLARGINE 100 UNITS/ML, PEN SQ-INSULIN SCH ×2 (09:00→21:16)
[2018-07-17 11:11] VITALS: BP 132/78
[2018-07-17] MEDS: ENOXAPARIN 40 MG/0.4 ML SQ SCH (11:50)
[2018-07-17] MEDS: DAPTOMYCIN 500 MG in SODIUM CHLORIDE 0.9% 100 ML IVPB SCH (12:38)
[2018-07-17 13:37] VITALS: BP 135/74
[2018-07-17 19:39] VITALS: BP 123/70
[2018-07-18 02:12] VITALS: BP 125/82
[2018-07-18] MEDS: ACETAMINOPHEN 325 MG TABLET PO PRN ×4 (02:51→23:00)
[2018-07-18] MEDS: IBUPROFEN 600 MG TABLET PO PRN ×4 (02:51→23:00)
[2018-07-18] MEDS: INSULIN LISPRO 100 UNITS/ML, PEN SQ-INSULIN SCH ×4 (06:43→21:00)
[2018-07-18 08:37] VITALS: BP 110/69
[2018-07-18] MEDS: SENNA/DOCUSATE TABLET PO SCH (09:00)
[2018-07-18] MEDS: SODIUM CHLORIDE FLUSH 10ML SYR IVF SCH ×2 (09:00→23:08)
[2018-07-18] MEDS: INSULIN GLARGINE 100 UNITS/ML, PEN SQ-INSULIN SCH ×2 (09:38→23:10)
[2018-07-18] MEDS: ENOXAPARIN 40 MG/0.4 ML SQ SCH (10:25)
[2018-07-18] MEDS: DAPTOMYCIN 500 MG in SODIUM CHLORIDE 0.9% 100 ML IVPB SCH (12:20)
[2018-07-18 12:46] VITALS: BP 126/79
[2018-07-18 20:05] VITALS: BP 138/92
[2018-07-19 02:07] VITALS: BP 135/82
[2018-07-19] MEDS ORDERED: DEXTROSE 4 GM TAB.CHEW PO PRN (02:30)
[2018-07-19] MEDS ORDERED: GLUCAGON 1 MG IM PRN (02:30)
[2018-07-19] MEDS ORDERED: DEXTROSE 50%, 50ML SYRINGE IVPush PRN (02:30)
[2018-07-19] MEDS: INSULIN LISPRO 100 UNITS/ML, PEN SQ-INSULIN SCH ×5 (07:00→20:49)
[2018-07-19 07:18] VITALS: BP 131/77
[2018-07-19] MEDS: ACETAMINOPHEN 325 MG TABLET PO PRN ×2 (08:00→16:49)
[2018-07-19] MEDS: IBUPROFEN 600 MG TABLET PO PRN ×2 (08:00→16:48)
[2018-07-19] MEDS: SENNA/DOCUSATE TABLET PO SCH (08:41)
[2018-07-19] MEDS: INSULIN GLARGINE 100 UNITS/ML, PEN SQ-INSULIN SCH ×2 (08:42→22:42)
[2018-07-19] MEDS: SODIUM CHLORIDE FLUSH 10ML SYR IVF SCH ×4 (08:43→20:41)
[2018-07-19] MEDS: ENOXAPARIN 40 MG/0.4 ML SQ SCH (11:00)
[2018-07-19] MEDS: DAPTOMYCIN 500 MG in SODIUM CHLORIDE 0.9% 100 ML IVPB SCH (11:36)
[2018-07-19 12:53] VITALS: BP 113/70
[2018-07-19 18:29] VITALS: BP 128/79
[2018-07-20 01:29] VITALS: BP 119/77
[2018-07-20] MEDS: IBUPROFEN 600 MG TABLET PO PRN ×2 (01:50→22:23)
[2018-07-20 04:47] LABS: BASOPHILS # (AUTO) 0.04 x10^3/uL (0-0.1); BASOPHILS % (AUTO) 1 % (0-1); EOSINOPHILS # (AUTO) 0.18 x10^3/uL (0-0.4); EOSINOPHILS % (AUTO) 3 % (1-7); LYMPHOCYTES # (AUTO) 1.48 x10^3/uL (1-3.4); LYMPHOCYTES % (AUTO) 27 % (22-44); MD NO; MEAN CORPUSCULAR HEMOGLOBIN 27.9 pg (27.5-34.5); MEAN PLATELET VOLUME 7.1 fL (7.4-10.4); MONOCYTES # (AUTO) 0.46 x10^3/uL (0.2-0.8); MONOCYTES % (AUTO) 9 % (2-9); NEUTROPHILS # (AUTO) 3.25 x10^3/uL (1.8-6.8); NEUTROPHILS % (AUTO) 60 % (42-75); PLATELET COUNT 429 x10^3/uL (130-400); RED CELL DISTRIBUTION WIDTH 15.1 % (9.4-14.8)
[2018-07-20 04:49] LABS: HCT (SEDRATE) 36.2 % (39.2-51.8)
[2018-07-20 04:51] LABS: ANION GAP 7 mmol/L (5-15); CALCIUM 8.3 mg/dL (8.5-10.1); CHLORIDE 104 mmol/L (98-107)
[2018-07-20 05:01] LABS: CREATININE 1.45 mg/dL (0.7-1.3)
[2018-07-20] MEDS: INSULIN LISPRO 100 UNITS/ML, PEN SQ-INSULIN SCH ×4 (07:00→21:00)
[2018-07-20 08:02] VITALS: BP 124/78
[2018-07-20] MEDS: INSULIN GLARGINE 100 UNITS/ML, PEN SQ-INSULIN SCH ×2 (08:42→22:39)
[2018-07-20] MEDS: SENNA/DOCUSATE TABLET PO SCH (08:42)
[2018-07-20] MEDS: SODIUM CHLORIDE FLUSH 10ML SYR IVF SCH ×4 (08:43→22:40)
[2018-07-20] MEDS: ENOXAPARIN 40 MG/0.4 ML SQ SCH (09:54)
[2018-07-20] MEDS: DAPTOMYCIN 500 MG in SODIUM CHLORIDE 0.9% 100 ML IVPB SCH (12:57)
[2018-07-20 15:03] VITALS: BP 136/77
[2018-07-20] MEDS ORDERED: LIDOCAINE/PF 1%, 30ML ONE (15:36)
[2018-07-20] MEDS ORDERED: BUPIVACAINE/PF 0.5% ONE (15:36)
[2018-07-20] MEDS ORDERED: TOBRAMYCIN SULFATE 1.2 GM IMP ONE (18:47)
[2018-07-20] MEDS ORDERED: ONDANSETRON 2MG/ML, 2ML ONE (19:03)
[2018-07-20] MEDS ORDERED: PROPOFOL 10 MG/ML, 20ML ONE (19:03)
[2018-07-20] MEDS ORDERED: EPHEDRINE 50 MG/ML, 1ML ONE (19:03)
[2018-07-20] MEDS ORDERED: FENTANYL PF 250 MCG/5ML ONE (19:03)
[2018-07-20] MEDS ORDERED: CEFAZOLIN 1,000 MG ONE (19:03)
[2018-07-20] MEDS ORDERED: MIDAZOLAM 1 MG/ML, 2ML ONE (19:03)
[2018-07-20] MEDS ORDERED: FENTANYL PF 100 MCG/2ML ONE (20:43)
[2018-07-20] MEDS ORDERED: HYDROmorphone 2 MG/ML, 1ML ONE (20:43)
[2018-07-20] MEDS ORDERED: OXYcodone 5 MG/5 ML ORAL.SOL UDC ONE (20:43)
[2018-07-20] MEDS: HYDROmorphone 1 MG/ML, 1ML IV PRN ×4 (20:52→21:17)
[2018-07-20] MEDS: FENTANYL PF 100 MCG/2ML IV PRN ×2 (20:53→21:10)
[2018-07-20] MEDS ORDERED: LABETALOL 5MG/ML, 20ML IV PRN (21:00)
[2018-07-20] MEDS ORDERED: hydrALAzine 20 MG/ML, 1ML IV PRN (21:00)
[2018-07-20] MEDS ORDERED: ACETAMINOPHEN 325 MG TABLET PO PRN (21:00)
[2018-07-20] MEDS ORDERED: OXYcodone 5 MG/5 ML ORAL.SOL UDC PO PRN (21:00)
[2018-07-20] MEDS ORDERED: ONDANSETRON ODT 8 MG PO PRN (21:00)
[2018-07-20] MEDS ORDERED: ALBUTEROL/IPRATROPIUM 2.5MG/0.5MG, 3 ML NPPB PRN (21:00)
[2018-07-20] MEDS ORDERED: PROMETHAZINE 25 MG/ML, 1ML IV PRN (21:00)
[2018-07-20] MEDS ORDERED: MEPERIDINE/PF 25MG/0.5ML IVPush PRN (21:00)
[2018-07-20] MEDS ORDERED: MIDAZOLAM 1 MG/ML, 2ML IV PRN (21:00)
[2018-07-20] MEDS: ACETAMINOPHEN 325 MG TABLET PO PRN (22:23)
[2018-07-21 00:55] VITALS: BP 122/69
[2018-07-21 04:19] VITALS: BP 121/69
[2018-07-21] MEDS: ACETAMINOPHEN 325 MG TABLET PO PRN ×3 (04:48→19:25)
[2018-07-21] MEDS: IBUPROFEN 600 MG TABLET PO PRN ×3 (04:48→19:25)
[2018-07-21] MEDS: SENNA/DOCUSATE TABLET PO SCH (08:07)
[2018-07-21] MEDS: SODIUM CHLORIDE FLUSH 10ML SYR IVF SCH ×4 (08:07→19:26)
[2018-07-21] MEDS: INSULIN LISPRO 100 UNITS/ML, PEN SQ-INSULIN SCH ×4 (08:08→21:53)
[2018-07-21] MEDS: INSULIN GLARGINE 100 UNITS/ML, PEN SQ-INSULIN SCH ×2 (08:09→21:52)
[2018-07-21 08:25] VITALS: BP 105/66
[2018-07-21] MEDS: ENOXAPARIN 40 MG/0.4 ML SQ SCH (11:00)
[2018-07-21] MEDS: DAPTOMYCIN 500 MG in SODIUM CHLORIDE 0.9% 100 ML IVPB SCH (12:35)
[2018-07-21 13:10] VITALS: BP 111/70
[2018-07-21 19:34] VITALS: BP 133/88
[2018-07-22 00:27] VITALS: BP 116/71
[2018-07-22] MEDS: IBUPROFEN 600 MG TABLET PO PRN ×4 (01:19→20:41)
[2018-07-22] MEDS: ACETAMINOPHEN 325 MG TABLET PO PRN ×4 (01:19→20:41)
[2018-07-22 05:15] LABS: RED BLOOD COUNT 4.08 x10^6/uL (4.38-5.82)
[2018-07-22 05:16] LABS: BASOPHILS # (AUTO) 0.03 x10^3/uL (0-0.1); BASOPHILS % (AUTO) 1 % (0-1); EOSINOPHILS # (AUTO) 0.16 x10^3/uL (0-0.4); EOSINOPHILS % (AUTO) 3 % (1-7); LYMPHOCYTES # (AUTO) 1.41 x10^3/uL (1-3.4); LYMPHOCYTES % (AUTO) 25 % (22-44); MD NO; MEAN CORPUSCULAR HEMOGLOBIN 28.1 pg (27.5-34.5); MEAN CORPUSCULAR VOLUME 82.7 fL (81-97); MEAN PLATELET VOLUME 7.1 fL (7.4-10.4); MONOCYTES # (AUTO) 0.55 x10^3/uL (0.2-0.8); MONOCYTES % (AUTO) 10 % (2-9); NEUTROPHILS # (AUTO) 3.46 x10^3/uL (1.8-6.8); NEUTROPHILS % (AUTO) 62 % (42-75); PLATELET COUNT 361 x10^3/uL (130-400); RED CELL DISTRIBUTION WIDTH 15.1 % (9.4-14.8)
[2018-07-22 05:26] LABS: ALANINE AMINOTRANSFERASE 12 U/L (12-78); ALBUMIN 2.7 g/dL (3.4-5.0); ANION GAP 5 mmol/L (5-15); CALCIUM 8.3 mg/dL (8.5-10.1); CHLORIDE 105 mmol/L (98-107); CREATININE 1.15 mg/dL (0.7-1.3)
[2018-07-22 05:29] LABS: ALKALINE PHOSPHATASE 77 U/L (45-117); BILIRUBIN,TOTAL 0.3 mg/dL (0.2-1.0); TOTAL PROTEIN 6.8 g/dL (6.4-8.2)
[2018-07-22 07:24] VITALS: BP 131/81
[2018-07-22] MEDS: INSULIN LISPRO 100 UNITS/ML, PEN SQ-INSULIN SCH ×5 (08:11→21:11)
[2018-07-22] MEDS: OMEPRAZOLE 20 MG CAPSULE.DR PO SCH (08:11)
[2018-07-22] MEDS: INSULIN GLARGINE 100 UNITS/ML, PEN SQ-INSULIN SCH ×2 (08:12→21:10)
[2018-07-22] MEDS: SODIUM CHLORIDE FLUSH 10ML SYR IVF SCH ×4 (09:00→20:42)
[2018-07-22] MEDS: SENNA/DOCUSATE TABLET PO SCH (09:00)
[2018-07-22] MEDS: ENOXAPARIN 40 MG/0.4 ML SQ SCH ×2 (11:00→12:19)
[2018-07-22] MEDS: DAPTOMYCIN 500 MG in SODIUM CHLORIDE 0.9% 100 ML IVPB SCH (11:11)
[2018-07-22 13:16] VITALS: BP 116/65
[2018-07-22 20:06] VITALS: BP 127/79
[2018-07-23 01:41] VITALS: BP 135/83
[2018-07-23] MEDS: IBUPROFEN 600 MG TABLET PO PRN ×4 (02:52→20:56)
[2018-07-23] MEDS: ACETAMINOPHEN 325 MG TABLET PO PRN ×4 (02:52→20:56)
[2018-07-23 06:22] LABS: HCT (SEDRATE) 34.8 % (39.2-51.8)
[2018-07-23 07:07] VITALS: BP 110/76
[2018-07-23] MEDS: INSULIN LISPRO 100 UNITS/ML, PEN SQ-INSULIN SCH ×4 (08:14→20:58)
[2018-07-23] MEDS: SENNA/DOCUSATE TABLET PO SCH (08:15)
[2018-07-23] MEDS: OMEPRAZOLE 20 MG CAPSULE.DR PO SCH (08:15)
[2018-07-23] MEDS: SODIUM CHLORIDE FLUSH 10ML SYR IVF SCH ×3 (08:16→21:00)
[2018-07-23] MEDS: INSULIN GLARGINE 100 UNITS/ML, PEN SQ-INSULIN SCH ×3 (08:19→20:57)
[2018-07-23] MEDS: ENOXAPARIN 40 MG/0.4 ML SQ SCH (12:16)
[2018-07-23] MEDS: DAPTOMYCIN 500 MG in SODIUM CHLORIDE 0.9% 100 ML IVPB SCH (12:16)
[2018-07-23 12:29] VITALS: BP 121/74
[2018-07-23 19:23] VITALS: BP 125/80
[2018-07-24 01:36] VITALS: BP 121/74
[2018-07-24] MEDS: IBUPROFEN 600 MG TABLET PO PRN ×2 (02:59→09:24)
[2018-07-24] MEDS: ACETAMINOPHEN 325 MG TABLET PO PRN ×2 (02:59→09:23)
[2018-07-24] MEDS: SODIUM CHLORIDE FLUSH 10ML SYR IVF SCH ×3 (03:00→08:05)
[2018-07-24 07:00] VITALS: BP 118/70
[2018-07-24] MEDS: INSULIN LISPRO 100 UNITS/ML, PEN SQ-INSULIN SCH ×2 (07:00→11:48)
[2018-07-24] MEDS: SENNA/DOCUSATE TABLET PO SCH (08:03)
[2018-07-24] MEDS: OMEPRAZOLE 20 MG CAPSULE.DR PO SCH (08:04)
[2018-07-24] MEDS: INSULIN GLARGINE 100 UNITS/ML, PEN SQ-INSULIN SCH (08:05)
[2018-07-24] MEDS ORDERED: OMEP-110 PO (10:40)
[2018-07-24] MEDS ORDERED: ACET325T14 PO (10:40)
[2018-07-24] MEDS ORDERED: IBUP-1222 PO (10:40)
[2018-07-24] MEDS: ENOXAPARIN 40 MG/0.4 ML SQ SCH (11:48)
[2018-07-24] MEDS: DAPTOMYCIN 500 MG in SODIUM CHLORIDE 0.9% 100 ML IVPB SCH (11:48)
[2018-07-24 12:26] VITALS: BP 119/70
== END 2018-07-24 13:42 | disposition home or self-care (01) | DRG 854 ==
LOC: SUATTDRO 09:48 → OR 10:04 → EDIP 10:29 → 4NOR 10:30
PROVIDERS: ADMIT Family Medicine; ATTEND Family Medicine
PROC: 0QBM0ZZ Excision of Left Tarsal, Open Approach (ICD-10-PCS; 2018-07-15)
PROC: 0SP Lower Joints, Removal (ICD-10-PCS; 2018-07-15)
PROC: 0QBH0ZZ Excision of Left Tibia, Open Approach (ICD-10-PCS; principal; 2018-07-15 13:30)
DX: A41.02 Sepsis due to Methicillin resistant Staphylococcus aureus (principal); E44.0 Moderate protein-calorie malnutrition; M00.9 Pyogenic arthritis, unspecified; M86.672 Other chronic osteomyelitis, left ankle and foot; L02.426 Furuncle of left lower limb; E11.69 Type 2 diabetes mellitus with other specified complication; Z68.24 Body mass index [BMI] 24.0-24.9, adult; Z79.4 Long term (current) use of insulin; Z83.3 Family history of diabetes mellitus; Z82.0 Family history of epilepsy and other diseases of the nervous system
CPT/HCPCS: 36415; 71045; 76001; 80048; 80053; 82550; 82947; 82962; 83036; 83605; 83735; 84145; 85025; 85610; 85651; 86140; 87015; 87040; 87070; 87075; 87077; 87102; 87116; 87147; 87176; 87186; 87205; 87206; 93005; C1713; J0690; J0878; J1170; J1650; J2250; J2405; J2704; J3010; J3260; J3370; J3490; J1815